=== PATIENT | female | born 1995 | race Caucasian/White ===

== ENCOUNTER 2017-12-27 11:11 | Emergency (ER) | payer OTHER ==
[~2017-12-27 11:11] MED LIST: ABILIFY20 MG PO; ADDERALL20 MG PO; ANAPROX DS550 MG PO; BIRTH CONTROL1 EAC1 PO; CLARITIN10 MG PO; DARVOCET N 1001 TAB PO; DEPO PROVER150 MG/ML IM; FLOVENT 110 M110 MCG INH; IRON325 M1 PO; IRON325 MG PO; MACROBID100 M1 PO; MEDROL DOSEPAK4 MG PO; MOTRIN400 MG PO; MOTRIN600 MG PO; MOTRIN800 MG PO; NAPROSYN500 MG PO; PERCOCET 325 MG1 TA7; PRENATAL1 TA1 PO; PROVENTIL0.09 MG/AC IH; ROBAXIN500 MG PO; ROBITUSSIN AC 10 MG/ PO; SEPTRA DS 800 M1 TAB PO; TESSALON PERLE100 M1 PO; TRIMOX500 MG PO; ULTRAM50 MG PO; VENTOLIN0.09 MG/AC IH; VICODIN 500 MG-1 TAB PO; ZITHROMAX Z PA250 MG PO; ZOFRAN ODT4 MG SL; ZOFRAN4 MG PO; ZYRTEC10 M1 PO
[2017-12-27 11:15] VITALS: BP 125/82
[2017-12-27] MEDS ORDERED: Motrin,Rufen800 MG PO (13:22)
[2017-12-27] MEDS ORDERED: CYCLOBENZAPRINE5 M3 PO (13:22)
== END 2017-12-27 11:28 | disposition home or self-care (01) ==
LOC: ED 11:11
DX: M54.5 Low back pain (principal); F17.200 Nicotine dependence, unspecified, uncomplicated; Z79.899 Other long term (current) drug therapy

== ENCOUNTER 2018-03-07 10:09 | Emergency (ER) | payer OTHER ==
[~2018-03-07] VITALS: Ht 160 cm; Wt 66.7 kg
[~2018-03-07 10:09] MED LIST changes: +CYCLOBENZAPRINE5 M3 PO; +Motrin,Rufen800 MG PO
[2018-03-07 10:12] VITALS: BP 127/74
[2018-03-07] MEDS ORDERED: CIPRODEX 0.3%-7.5 ML OT (10:40)
[2018-03-07] MEDS ORDERED: AMOXICILLIN500 M2 PO (10:40)
[2018-03-07] MEDS ORDERED: CILOXAN 5 ML5 ML OPH (14:55)
== END 2018-03-07 10:55 | disposition home or self-care (01) ==
LOC: ED 10:09
DX: H00.034 Abscess of left upper eyelid (principal); F17.200 Nicotine dependence, unspecified, uncomplicated; F10.10 Alcohol abuse, uncomplicated

== ENCOUNTER 2018-07-27 21:05 | Emergency (ER) | payer OTHER ==
[~2018-07-27] VITALS: Ht 162.5 cm; Wt 59.0 kg
[~2018-07-27 21:05] MED LIST changes: +AMOXICILLIN500 M2 PO; +CILOXAN 5 ML5 ML OPH; +CIPRODEX 0.3%-7.5 ML OT
[2018-07-27 21:09] VITALS: BP 124/73
[2018-07-27 21:25] LABS: BILIRUBIN NEGATIVE (NEGATIVE); BLOOD TRACE-INTACT (NEGATIVE); CLARITY CLEAR (CLEAR); COLOR YELLOW (YELLOW); GLUCOSE NEGATIVE (NEGATIVE); KETONE NEGATIVE (NEGATIVE); LEUKO ESTERASE TRACE (NEGATIVE); NITRITE NEGATIVE (NEGATIVE)
[2018-07-27 21:31] LABS: BACTERIA 1+; EPITHELIAL CELLS 0-2; RBC 0-2 rbc/hpf (0-2)
[2018-07-27 21:38] LABS: BASO # 0.1 10*3/uL (0.0-0.1); BASO % 0.6 % (0.0-1.0); EOS # 0.2 10*3/uL (0.0-0.4); EOS % 1.4 % (1.0-4.0); HEMATOCRIT 37.9 % (37.0-47.0); HEMOGLOBIN 12.8 g/dl (12.0-16.0); LYMPH # 2.3 10*3/uL (1.3-4.4); LYMPH % 17.6 % (27.0-41.0); MEAN CELL VOLUME 85.4 fl (81.0-99.0); MEAN CORPUSCULAR HGB 28.8 pg (27.0-31.0); MEAN CORPUSCULAR HGB CONC 33.8 g/dl (33.0-37.0); MONO # 1.1 10*3/uL (0.1-1.0); MONO % 7.9 % (3.0-9.0); NEUT # 9.6 10*3/uL (2.3-7.9); NEUT % 72.2 % (47.0-73.0); PLATELET COUNT AUTOMATED 234 10*3/uL (130-400); RED BLOOD COUNT 4.44 10*6/uL (4.10-5.10); WHITE BLOOD COUNT 13.2 10*3/uL (4.8-10.8)
[2018-07-27 21:53] LABS: ALBUMIN 3.2 gm/dl (3.1-4.5); ALKALINE PHOSPHATASE 67 U/L (45-117); BUN 5 mg/dl (7-24); CHLORIDE 106 mmol/L (98-107); CREATININE 0.72 mg/dL (0.55-1.02); POTASSIUM 3.2 mmol/L (3.5-5.1); SGOT/AST 18 IU/L (3-35); SGPT/ALT 23 U/L (12-78); SODIUM 141 mmol/L (136-145); TOTAL PROTEIN 6.5 gm/dL (6.4-8.2)
[2018-07-27] MEDS ORDERED: OMNICEF300 MG PO (23:44)
== END 2018-07-27 23:50 | disposition home or self-care (01) ==
LOC: ED 21:05
PROVIDERS: Nurse Practitioner Family
DX: N12 Tubulo-interstitial nephritis, not specified as acute or chronic (principal); Z79.2 Long term (current) use of antibiotics; Z98.51 Tubal ligation status

== ENCOUNTER → 2019-12-05 | Outpatient (CLI) | payer OTHER ==
[~2019-12-05] MED LIST changes: +OMNICEF300 MG PO
== END | disposition home or self-care (01) ==
LOC: US 15:38
DX: R10.2 Pelvic and perineal pain (principal)

== ENCOUNTER 2020-04-16 20:06 | Emergency (ER) | payer OTHER ==
[~2020-04-16] VITALS: Ht 165.1 cm; Wt 59.0 kg
[2020-04-16 20:18] VITALS: BP 118/66
== END 2020-04-16 22:19 | disposition home or self-care (01) ==
LOC: ED 20:06
DX: S66.911A Strain of unspecified muscle, fascia and tendon at wrist and hand level, right hand, initial encounter (principal); F41.9 Anxiety disorder, unspecified; J45.909 Unspecified asthma, uncomplicated; F31.9 Bipolar disorder, unspecified; F17.200 Nicotine dependence, unspecified, uncomplicated; X58.XXXA Exposure to other specified factors, initial encounter; Y93.89 Activity, other specified; Y92.89 Other specified places as the place of occurrence of the external cause; Y99.8 Other external cause status

== ENCOUNTER → 2020-12-07 | Outpatient (CLI) | payer OTHER | END | disposition home or self-care (01) | LOC: US 10:30 | PROVIDERS: ATTEND Nurse Practitioner Women's Health | DX: N63.11 Unspecified lump in the right breast, upper outer quadrant (principal) ==

== ENCOUNTER 2021-04-23 19:55 | Emergency (ER) | payer OTHER ==
[~2021-04-23] VITALS: Ht 160 cm; Wt 62.1 kg
[2021-04-23 20:04] VITALS: BP 130/78
[2021-04-23] MEDS ORDERED: AUGMENTIN 875875 MG PO (20:48)
[2021-04-23] MEDS ORDERED: HYDROCODONE-AC1 EAC1 PO (20:48)
[2021-04-23] MEDS ORDERED: IBUPROFEN600 MG PO (20:48)
== END 2021-04-23 21:43 | disposition home or self-care (01) ==
LOC: ED 19:55
DX: K04.7 Periapical abscess without sinus (principal)

== ENCOUNTER 2022-01-19 20:02 | Emergency (ER) | payer OTHER ==
[~2022-01-19] VITALS: Ht 160 cm; Wt 57.2 kg
[~2022-01-19 20:02] MED LIST changes: +AUGMENTIN 875875 MG PO; +HYDROCODONE-AC1 EAC1 PO; +IBUPROFEN600 MG PO
[2022-01-19 20:07] VITALS: BP 133/66
[2022-01-19] MEDS ORDERED: IBUPROFEN600 MG PO (20:36)
== END 2022-01-19 21:09 | disposition home or self-care (01) ==
LOC: ED 20:02
DX: S46.911A Strain of unspecified muscle, fascia and tendon at shoulder and upper arm level, right arm, initial encounter (principal); F17.200 Nicotine dependence, unspecified, uncomplicated; W18.39XA Other fall on same level, initial encounter; Y93.89 Activity, other specified; Y92.89 Other specified places as the place of occurrence of the external cause; Y99.8 Other external cause status

== ENCOUNTER 2022-04-19 11:52 | Emergency (ER) | payer OTHER ==
[~2022-04-19] VITALS: Wt 53.1 kg
[2022-04-19 12:11] VITALS: BP 128/78
[2022-04-19] MEDS ORDERED: Motrin,Rufen800 MG PO (12:18)
[2022-04-19] MEDS ORDERED: AMOXICILLIN500 M2 PO (12:18)
== END 2022-04-19 12:42 | disposition home or self-care (01) ==
LOC: ED 11:52
DX: K08.89 Other specified disorders of teeth and supporting structures (principal)

== ENCOUNTER 2022-04-22 07:47 | Emergency (ER) | payer OTHER ==
[~2022-04-22] VITALS: Ht 160 cm; Wt 54.0 kg
[2022-04-22 07:57] VITALS: BP 124/62
== END 2022-04-22 09:22 | disposition home or self-care (01) ==
LOC: ED 07:47
DX: U07.1 COVID-19 (principal)

== ENCOUNTER 2022-06-02 16:05 | Emergency (ER) | payer OTHER ==
[~2022-06-02] VITALS: Ht 160 cm; Wt 54.4 kg
[2022-06-02 16:50] VITALS: BP 131/52
[2022-06-02 17:58] LABS: BASO # 0.1 10*3/uL (0.0-0.1); BASO % 0.7 % (0.0-1.0); EOS # 0.2 10*3/uL (0.0-0.4); EOS % 1.7 % (1.0-4.0); HEMATOCRIT 37.7 % (37.0-47.0); LYMPH # 2.4 10*3/uL (1.3-4.4); LYMPH % 26.8 % (27.0-41.0); MEAN CELL VOLUME 87.5 fl (81.0-99.0); MEAN CORPUSCULAR HGB 28.8 pg (27.0-31.0); MEAN CORPUSCULAR HGB CONC 32.9 g/dl (33.0-37.0); MEAN PLATELET VOLUME 9.8 fl (9.6-12.3); MONO # 0.8 10*3/uL (0.1-1.0); MONO % 8.9 % (3.0-9.0); NEUT # 5.4 10*3/uL (2.3-7.9); NEUT % 61.7 % (47.0-73.0); PLATELET COUNT AUTOMATED 278 10*3/uL (130-400); RED BLOOD COUNT 4.31 10*6/uL (4.10-5.10); RED CELL DISTRI WIDTH 13.3 % (0-14.5); WHITE BLOOD COUNT 8.8 10*3/uL (4.8-10.8)
[2022-06-02 18:13] LABS: ALKALINE PHOSPHATASE 51 U/L (45-117); BUN 5 mg/dl (7-24); CHLORIDE 108 mmol/L (98-107); CREATININE 0.69 mg/dL (0.55-1.02); LIPASE 156 U/L (73-393); POTASSIUM 3.7 mmol/L (3.5-5.1); SGOT/AST 9 IU/L (3-35); SGPT/ALT 16 U/L (12-78); SODIUM 141 mmol/L (136-145); TOTAL PROTEIN 6.7 gm/dL (6.4-8.2)
[2022-06-02 18:15] LABS: B-hCG (QUALITATIVE) NEGATIVE (NEGATIVE)
[2022-06-02 18:20] LABS: BILIRUBIN Negative (Negative); BLOOD Negative (Negative); CLARITY Clear (Clear); COLOR Yellow (Yellow); GLUCOSE Negative (Negative); KETONE Negative (Negative); LEUKO ESTERASE 1+ (Negative); NITRITE Negative (Negative); PH 7.5 (4.5-8.0); SPECIFIC GRAVITY <= 1.005 (1.001-1.030); UROBILINOGEN 0.2 E.U./dl (0.0-1.0)
[2022-06-02 18:28] LABS: BACTERIA 2+
[2022-06-02] MEDS ORDERED: PHENERGAN25 M3 PO (18:58)
[2022-06-02] MEDS ORDERED: PRILOSEC20 M1 PO (18:58)
== END 2022-06-02 19:07 | disposition home or self-care (01) ==
LOC: ED 16:05
PROVIDERS: Emergency Medicine
DX: R10.9 Unspecified abdominal pain (principal); R11.0 Nausea; F17.200 Nicotine dependence, unspecified, uncomplicated

== ENCOUNTER 2022-10-27 15:15 | Emergency (ER) | payer OTHER ==
[~2022-10-27] VITALS: Ht 162.5 cm; Wt 56.7 kg
[~2022-10-27 15:15] MED LIST changes: +PHENERGAN25 M3 PO; +PRILOSEC20 M1 PO
[2022-10-27 15:23] VITALS: BP 142/71
== END 2022-10-27 16:58 | disposition home or self-care (01) ==
LOC: ED 15:15
DX: S93.602A Unspecified sprain of left foot, initial encounter (principal); W22.8XXA Striking against or struck by other objects, initial encounter; Y93.89 Activity, other specified; Y92.89 Other specified places as the place of occurrence of the external cause; Y99.8 Other external cause status

== ENCOUNTER 2023-01-26 18:24 | Emergency (ER) | payer OTHER ==
[~2023-01-26] VITALS: Ht 160 cm; Wt 56.7 kg
[2023-01-26 18:47] VITALS: BP 128/67
[2023-01-26] MEDS ORDERED: Motrin,Rufen800 MG PO (19:04)
[2023-01-26] MEDS ORDERED: AMOXICILLIN500 M2 PO (19:04)
== END 2023-01-26 19:14 | disposition home or self-care (01) ==
LOC: ED 18:24
DX: K04.7 Periapical abscess without sinus (principal)

== ENCOUNTER 2023-02-15 02:09 | Emergency (ER) | payer OTHER ==
[~2023-02-15] VITALS: Ht 160 cm; Wt 56.7 kg
[2023-02-15 02:17] VITALS: BP 126/79
[2023-02-15] MEDS ORDERED: METHOCARBAMOL500 M1 PO (02:34)
[2023-02-15] MEDS ORDERED: NAPROXEN250 MG PO (02:34)
== END 2023-02-15 02:58 | disposition home or self-care (01) ==
LOC: ED 02:09
DX: S46.911A Strain of unspecified muscle, fascia and tendon at shoulder and upper arm level, right arm, initial encounter (principal); X50.0XXA Overexertion from strenuous movement or load, initial encounter; Y93.89 Activity, other specified; Y92.89 Other specified places as the place of occurrence of the external cause; Y99.8 Other external cause status

== ENCOUNTER → 2023-04-13 | Outpatient (CLI) | payer OTHER ==
[~2023-04-13] MED LIST changes: +METHOCARBAMOL500 M1 PO; +NAPROXEN250 MG PO
== END | disposition home or self-care (01) ==
LOC: RAD 10:55
PROVIDERS: ATTEND Nurse Practitioner
DX: M25.511 Pain in right shoulder (principal)

== ENCOUNTER 2023-06-03 21:26 | Emergency (ER) | payer OTHER ==
[~2023-06-03] VITALS: Ht 165.1 cm; Wt 56.7 kg
[2023-06-03 21:40] VITALS: BP 124/69
[2023-06-03 22:03] LABS: BASO # 0.1 10*3/uL (0.0-0.1); BASO % 0.6 % (0.0-1.0); EOS # 0.3 10*3/uL (0.0-0.4); EOS % 2.3 % (1.0-4.0); HEMATOCRIT 36.8 % (37.0-47.0); LYMPH # 3.1 10*3/uL (1.3-4.4); LYMPH % 28.6 % (27.0-41.0); MEAN CELL VOLUME 91.1 fl (81.0-99.0); MEAN CORPUSCULAR HGB 29.5 pg (27.0-31.0); MEAN CORPUSCULAR HGB CONC 32.3 g/dl (33.0-37.0); MEAN PLATELET VOLUME 10.4 fl (9.6-12.3); MONO % 9.2 % (3.0-9.0); NEUT # 6.5 10*3/uL (2.3-7.9); NEUT % 59.1 % (47.0-73.0); PLATELET COUNT AUTOMATED 265 10*3/uL (130-400); RED BLOOD COUNT 4.04 10*6/uL (4.10-5.10); RED CELL DISTRI WIDTH 13.1 % (0-14.5); WHITE BLOOD COUNT 10.9 10*3/uL (4.8-10.8)
[2023-06-03] MEDS ORDERED: ZITHROMAX250 MG PO (22:16)
[2023-06-03] MEDS ORDERED: PREDNISONE50 MG PO (22:17)
[2023-06-03 22:32] LABS: ALKALINE PHOSPHATASE 65 U/L (46-116); CHLORIDE 107 mmol/L (98-107); POTASSIUM 3.4 mmol/L (3.4-5.1); TOTAL PROTEIN 6.2 gm/dL (6.0-8.0)
[2023-06-03 22:34] LABS: BUN < 5 mg/dl (9-23); SGPT/ALT < 7 U/L (10-49)
== END 2023-06-03 23:06 | disposition home or self-care (01) ==
LOC: ED 21:26
PROVIDERS: Nurse Practitioner Family
DX: J45.909 Unspecified asthma, uncomplicated (principal); F41.9 Anxiety disorder, unspecified; F31.9 Bipolar disorder, unspecified; F90.9 Attention-deficit hyperactivity disorder, unspecified type; Z98.890 Other specified postprocedural states; Z87.891 Personal history of nicotine dependence

== ENCOUNTER 2023-11-03 00:08 | Emergency (ER) | payer OTHER ==
[~2023-11-03] VITALS: Ht 167.6 cm; Wt 56.7 kg
[~2023-11-03 00:08] MED LIST changes: +PREDNISONE50 MG PO; +ZITHROMAX250 MG PO
[2023-11-03 00:43] VITALS: BP 117/50
[2023-11-03 01:03] LABS: HEMATOCRIT 40.9 % (37.0-47.0); MEAN CELL VOLUME 93.4 fl (81.0-99.0); MEAN CORPUSCULAR HGB CONC 31.1 g/dl (33.0-37.0); MEAN PLATELET VOLUME 10.3 fl (9.6-12.3); PLATELET COUNT AUTOMATED 236 10*3/uL (130-400); RED BLOOD COUNT 4.38 10*6/uL (4.10-5.10); RED CELL DISTRI WIDTH 12.9 % (0-14.5); WHITE BLOOD COUNT 7.3 10*3/uL (4.8-10.8)
[2023-11-03 01:06] LABS: MANUAL DIFF REFLEX YES
[2023-11-03 01:16] LABS: ACT PARTIAL THROMBO TIME 28.9 SECONDS (20.0-32.1)
[2023-11-03 01:24] LABS: ALKALINE PHOSPHATASE 60 U/L (46-116); ATYPICAL LYMPHS 1 % (0-0); BUN 6 mg/dl (9-23); BURR CELLS FEW; CHLORIDE 109 mmol/L (98-107); LIPASE 33 U/L (12-53); PLATELET SUFFICIENCY NORMAL (NORMAL); SGPT/ALT 22 U/L (5-49); TOTAL CELLS COUNTED 100 #CELLS; TOTAL PROTEIN 6.6 gm/dL (6.0-8.0)
[2023-11-03 01:25] LABS: SPHEROCYTES FEW
[2023-11-03] MEDS ORDERED: ZITHROMAX250 MG PO (03:44)
[2023-11-03] MEDS ORDERED: PREDNISONE50 MG PO (03:44)
== END 2023-11-03 04:11 | disposition home or self-care (01) ==
LOC: ED 00:08
PROVIDERS: Internal Medicine
DX: J40 Bronchitis, not specified as acute or chronic (principal); Z20.822 Contact with and (suspected) exposure to COVID-19; F17.210 Nicotine dependence, cigarettes, uncomplicated; Z79.2 Long term (current) use of antibiotics; Z79.899 Other long term (current) drug therapy

== ENCOUNTER 2023-11-22 18:00 | Emergency (ER) | payer OTHER ==
[~2023-11-22] VITALS: Ht 167.6 cm; Wt 56.7 kg
[2023-11-22 18:22] VITALS: BP 105/60
[2023-11-22] MEDS ORDERED: Motrin,Rufen800 MG PO (19:48)
== END 2023-11-22 19:51 | disposition home or self-care (01) ==
LOC: ED 18:00
DX: S90.31XA Contusion of right foot, initial encounter (principal); Z79.2 Long term (current) use of antibiotics; Z79.899 Other long term (current) drug therapy; W22.8XXA Striking against or struck by other objects, initial encounter; Y93.89 Activity, other specified; Y92.89 Other specified places as the place of occurrence of the external cause; Y99.8 Other external cause status

== ENCOUNTER 2023-12-12 12:35 | Emergency (ER) | payer OTHER ==
[~2023-12-12] VITALS: Wt 54.9 kg
[2023-12-12 13:01] VITALS: BP 132/88
[2023-12-12] MEDS ORDERED: Ketorolac Tromethamine 30 MG/ML VIAL IM ONE (13:15)
[2023-12-12 13:36] LABS: BASO # 0.1 10*3/uL (0.0-0.1); BASO % 0.6 % (0.0-1.0); EOS # 0.2 10*3/uL (0.0-0.4); EOS % 1.6 % (1.0-4.0); HEMATOCRIT 41.9 % (37.0-47.0); LYMPH # 2.5 10*3/uL (1.3-4.4); LYMPH % 25.3 % (27.0-41.0); MEAN CELL VOLUME 91.9 fl (81.0-99.0); MEAN CORPUSCULAR HGB 28.5 pg (27.0-31.0); MEAN PLATELET VOLUME 9.8 fl (9.6-12.3); MONO # 0.6 10*3/uL (0.1-1.0); MONO % 6.2 % (3.0-9.0); NEUT # 6.5 10*3/uL (2.3-7.9); PLATELET COUNT AUTOMATED 360 10*3/uL (130-400); RED BLOOD COUNT 4.56 10*6/uL (4.10-5.10); RED CELL DISTRI WIDTH 12.7 % (0-14.5); WHITE BLOOD COUNT 9.8 10*3/uL (4.8-10.8)
[2023-12-12 13:56] LABS: BUN 6 mg/dl (9-23); CHLORIDE 106 mmol/L (98-107); POTASSIUM 4.8 mmol/L (3.4-5.1)
[2023-12-12] MEDS ORDERED: PREDNISONE50 MG PO (15:07)
== END 2023-12-12 15:20 | disposition home or self-care (01) ==
LOC: ED 12:35
PROVIDERS: Physician Assistant Medical
DX: M94.0 Chondrocostal junction syndrome [Tietze] (principal); J45.909 Unspecified asthma, uncomplicated; F90.9 Attention-deficit hyperactivity disorder, unspecified type; F31.9 Bipolar disorder, unspecified; F41.9 Anxiety disorder, unspecified; F17.210 Nicotine dependence, cigarettes, uncomplicated; Z98.890 Other specified postprocedural states

== ENCOUNTER 2024-01-03 09:15 | Emergency (ER) | payer OTHER ==
[~2024-01-03] VITALS: Ht 167.6 cm; Wt 54.4 kg
[2024-01-03] MEDS ORDERED: Cyclobenzaprine Hydrochlorid 10 MG TAB PO ONE (09:30)
[2024-01-03 09:38] VITALS: BP 106/58
[2024-01-03] MEDS ORDERED: CYCLOBENZAPRINE5 M3 PO (10:56)
== END 2024-01-03 11:08 | disposition home or self-care (01) ==
LOC: ED 09:15
DX: M79.671 Pain in right foot (principal); M62.838 Other muscle spasm; F41.9 Anxiety disorder, unspecified; J45.909 Unspecified asthma, uncomplicated; F31.9 Bipolar disorder, unspecified; F90.9 Attention-deficit hyperactivity disorder, unspecified type; Z98.890 Other specified postprocedural states; Z87.891 Personal history of nicotine dependence

== ENCOUNTER → 2024-02-28 | Outpatient (CLI) | payer OTHER ==
[2024-02-28 12:29] LABS: BASO # 0.1 10*3/uL (0.0-0.1); BASO % 0.9 % (0.0-1.0); EOS # 0.2 10*3/uL (0.0-0.4); EOS % 2.3 % (1.0-4.0); HEMATOCRIT 39.8 % (37.0-47.0); LYMPH # 1.8 10*3/uL (1.3-4.4); LYMPH % 28.2 % (27.0-41.0); MEAN CORPUSCULAR HGB 28.5 pg (27.0-31.0); MEAN CORPUSCULAR HGB CONC 31.7 g/dl (33.0-37.0); MONO # 0.6 10*3/uL (0.1-1.0); MONO % 9.7 % (3.0-9.0); NEUT # 3.8 10*3/uL (2.3-7.9); NEUT % 58.6 % (47.0-73.0); PLATELET COUNT AUTOMATED 289 10*3/uL (130-400); RED BLOOD COUNT 4.42 10*6/uL (4.10-5.10); RED CELL DISTRI WIDTH 13.7 % (0-14.5); WHITE BLOOD COUNT 6.5 10*3/uL (4.8-10.8)
[2024-02-28 13:01] LABS: ALKALINE PHOSPHATASE 51 U/L (46-116); BUN 6 mg/dl (9-23); CHLORIDE 107 mmol/L (98-107); POTASSIUM 3.7 mmol/L (3.4-5.1); SGPT/ALT 9 U/L (5-49); TOTAL PROTEIN 6.9 gm/dL (6.0-8.0)
[2024-02-28 13:03] LABS: VITAMIN D, 25-HYDROXY 39.3 ng/mL (30-100)
[2024-02-28 13:21] LABS: FREE T4 1.28 ng/dl (0.89-1.76)
== END | disposition home or self-care (01) ==
LOC: LAB 12:06
PROVIDERS: ATTEND Nurse Practitioner Family
DX: G43.019 Migraine without aura, intractable, without status migrainosus (principal)

== ENCOUNTER 2024-03-03 11:15 | Emergency (ER) | payer OTHER ==
[~2024-03-03] VITALS: Ht 162.5 cm; Wt 62.6 kg
[2024-03-03 11:36] VITALS: BP 143/91
[2024-03-03] MEDS ORDERED: SODIUM CHLORIDE 0.9% 1,000 ML IV ONE (11:45)
[2024-03-03] MEDS ORDERED: Dexamethasone Sodium Phospha 20 MG/5 ML VIAL IV ONE (11:50)
[2024-03-03] MEDS ORDERED: Metoclopramide Hydrochloride 10 MG/2 ML AMP IV ONE (11:50)
[2024-03-03] MEDS ORDERED: Ketorolac Tromethamine 30 MG/ML VIAL IV ONE (11:50)
[2024-03-03] MEDS ORDERED: diphenhydrAMINE hydrochloride 50 MG/ML VIAL IV ONE (11:50)
== END 2024-03-03 14:39 | disposition home or self-care (01) ==
LOC: ED 11:15
DX: G43.909 Migraine, unspecified, not intractable, without status migrainosus (principal); F31.9 Bipolar disorder, unspecified; F41.9 Anxiety disorder, unspecified; J45.909 Unspecified asthma, uncomplicated; F90.9 Attention-deficit hyperactivity disorder, unspecified type; Z98.890 Other specified postprocedural states; F17.200 Nicotine dependence, unspecified, uncomplicated

== ENCOUNTER → 2024-04-07 | Outpatient (CLI) | payer OTHER ==
[2024-04-07 11:10] LABS: FREE T4 1.26 ng/dl (0.89-1.76)
[2024-04-08 04:06] LABS: THYROID PEROXIDASE (TPO) AB 14 IU/mL (0-34)
[2024-04-08 16:08] LABS: THYROGLOBULIN ANTIBODY <1.0 IU/mL (0.0-0.9)
== END | disposition home or self-care (01) ==
LOC: LAB 09:46
PROVIDERS: ATTEND Nurse Practitioner Family
DX: R94.6 Abnormal results of thyroid function studies (principal)

== ENCOUNTER 2024-07-28 02:32 | Emergency (ER) | payer OTHER ==
[~2024-07-28] VITALS: Ht 165.1 cm; Wt 73.5 kg
[2024-07-28 02:41] VITALS: BP 123/73
[2024-07-28 02:52] LABS: BILIRUBIN Negative (Negative); BLOOD Negative (Negative); CLARITY Clear (Clear); COLOR Yellow (Yellow); GLUCOSE Negative (Negative); KETONE Negative (Negative); LEUKO ESTERASE Trace (Negative); NITRITE Negative (Negative); PH 6.5 (4.5-8.0); UROBILINOGEN 0.2 E.U./dl (0.0-1.0)
[2024-07-28 02:59] LABS: BACTERIA 1+; MUCOUS 1+; RBC 0-2 rbc/hpf (0-2)
[2024-07-28 03:10] LABS: BASO # 0.1 10*3/uL (0.0-0.1); BASO % 0.6 % (0.0-1.0); EOS # 0.3 10*3/uL (0.0-0.4); EOS % 2.6 % (1.0-4.0); HEMATOCRIT 41.3 % (37.0-47.0); LYMPH # 4.1 10*3/uL (1.3-4.4); LYMPH % 41.3 % (27.0-41.0); MEAN CORPUSCULAR HGB 28.9 pg (27.0-31.0); MEAN CORPUSCULAR HGB CONC 31.7 g/dl (33.0-37.0); MEAN PLATELET VOLUME 10.1 fl (9.6-12.3); MONO # 0.9 10*3/uL (0.1-1.0); MONO % 9.1 % (3.0-9.0); NEUT # 4.6 10*3/uL (2.3-7.9); NEUT % 46.2 % (47.0-73.0); PLATELET COUNT AUTOMATED 305 10*3/uL (130-400); RED BLOOD COUNT 4.54 10*6/uL (4.10-5.10); RED CELL DISTRI WIDTH 13.2 % (0-14.5); WHITE BLOOD COUNT 9.9 10*3/uL (4.8-10.8)
[2024-07-28] MEDS ORDERED: Ondansetron Hydrochloride 4 MG TAB SL ONE (03:15)
[2024-07-28] MEDS ORDERED: Acetaminophen/Oxycodone 5 MG/325 MG TABLET PO ONE (03:15)
[2024-07-28 03:40] LABS: BUN 6 mg/dl (9-23); CHLORIDE 105 mmol/L (98-107); POTASSIUM 3.4 mmol/L (3.4-5.1)
[2024-07-28] MEDS ORDERED: CIPRO500 MG PO (04:48)
== END 2024-07-28 05:10 | disposition home or self-care (01) ==
LOC: ED 02:32
PROVIDERS: Emergency Medicine
DX: N30.90 Cystitis, unspecified without hematuria (principal); G43.909 Migraine, unspecified, not intractable, without status migrainosus; F41.9 Anxiety disorder, unspecified; F31.9 Bipolar disorder, unspecified; J45.909 Unspecified asthma, uncomplicated; F90.9 Attention-deficit hyperactivity disorder, unspecified type; Z90.49 Acquired absence of other specified parts of digestive tract; Z98.890 Other specified postprocedural states

== ENCOUNTER 2024-08-25 09:56 | Emergency (ER) | payer OTHER ==
[~2024-08-25] VITALS: Ht 162.5 cm; Wt 63.5 kg
[~2024-08-25 09:56] MED LIST changes: +CIPRO500 MG PO
[2024-08-25 10:18] VITALS: BP 126/80
[2024-08-25] MEDS ORDERED: AVPAK AZITHROM250 MG PO (12:22)
[2024-08-25] MEDS ORDERED: Ondansetron4 MG PO (12:22)
[2024-08-25] MEDS ORDERED: AMOX-CLAV 875-1 EACH PO (12:24)
== END 2024-08-25 12:28 | disposition home or self-care (01) ==
LOC: ED 09:56
DX: J45.909 Unspecified asthma, uncomplicated (principal); Z20.822 Contact with and (suspected) exposure to COVID-19; F41.9 Anxiety disorder, unspecified; F31.9 Bipolar disorder, unspecified; R11.2 Nausea with vomiting, unspecified; R19.7 Diarrhea, unspecified; F90.9 Attention-deficit hyperactivity disorder, unspecified type; Z98.890 Other specified postprocedural states; Z87.891 Personal history of nicotine dependence

== ENCOUNTER 2024-09-09 11:06 | Emergency (ER) | payer OTHER ==
[~2024-09-09] VITALS: Ht 162.5 cm; Wt 63.5 kg
[~2024-09-09 11:06] MED LIST changes: +AMOX-CLAV 875-1 EACH PO; +AVPAK AZITHROM250 MG PO; +Ondansetron4 MG PO
[2024-09-09 11:16] VITALS: BP 125/76
[2024-09-09] MEDS ORDERED: IBUPROFEN 800 MG TAB PO ONE (11:45)
[2024-09-09] MEDS ORDERED: ALBUTEROL 8 GM INHALER INH ONE (11:45)
[2024-09-09 11:59] LABS: BASO # 0.1 10*3/uL (0.0-0.1); EOS # 0.2 10*3/uL (0.0-0.4); EOS % 2.5 % (1.0-4.0); HEMATOCRIT 39.3 % (37.0-47.0); MEAN CELL VOLUME 89.5 fl (81.0-99.0); MEAN CORPUSCULAR HGB 28.7 pg (27.0-31.0); MEAN CORPUSCULAR HGB CONC 32.1 g/dl (33.0-37.0); MEAN PLATELET VOLUME 9.7 fl (9.6-12.3); MONO # 0.7 10*3/uL (0.1-1.0); MONO % 9.9 % (3.0-9.0); NEUT % 56.2 % (47.0-73.0); PLATELET COUNT AUTOMATED 325 10*3/uL (130-400); RED BLOOD COUNT 4.39 10*6/uL (4.10-5.10); RED CELL DISTRI WIDTH 12.2 % (0-14.5); WHITE BLOOD COUNT 7.1 10*3/uL (4.8-10.8)
[2024-09-09 12:19] LABS: ALKALINE PHOSPHATASE 58 U/L (46-116); BUN 7 mg/dl (9-23); CHLORIDE 107 mmol/L (98-107); POTASSIUM 3.9 mmol/L (3.4-5.1); SGPT/ALT 12 U/L (5-49); TOTAL PROTEIN 6.6 gm/dL (6.0-8.0)
[2024-09-09] MEDS ORDERED: methylPREDNISolone sod succ 125 MG VIAL IV ONE (13:50)
[2024-09-09] MEDS ORDERED: PREDNISONE20 M1 PO (13:55)
[2024-09-09] MEDS ORDERED: GUAIFEN-CODEIN118 ML PO (13:55)
[2024-09-09] MEDS ORDERED: ZITHROMAX250 MG PO (13:55)
== END 2024-09-09 14:09 | disposition home or self-care (01) ==
LOC: ED 11:06
PROVIDERS: Nurse Practitioner
DX: J20.9 Acute bronchitis, unspecified (principal); Z20.822 Contact with and (suspected) exposure to COVID-19; F41.9 Anxiety disorder, unspecified; J45.909 Unspecified asthma, uncomplicated; F31.9 Bipolar disorder, unspecified; F90.9 Attention-deficit hyperactivity disorder, unspecified type; Z98.890 Other specified postprocedural states; F17.290 Nicotine dependence, other tobacco product, uncomplicated

== ENCOUNTER 2024-11-02 19:31 | Emergency (ER) | payer OTHER ==
[~2024-11-02] VITALS: Ht 165.1 cm; Wt 59.9 kg
[~2024-11-02 19:31] MED LIST changes: +GUAIFEN-CODEIN118 ML PO; +PREDNISONE20 M1 PO
[2024-11-02 19:43] VITALS: BP 151/99
[2024-11-02] MEDS ORDERED: Ondansetron Hydrochloride 4 MG/2 ML VIAL IV ONE (19:55)
[2024-11-02] MEDS ORDERED: Ketorolac Tromethamine 30 MG/ML VIAL IV ONE (19:55)
[2024-11-02] MEDS ORDERED: SODIUM CHLORIDE 0.9% 1,000 ML IV ONE (19:55)
[2024-11-02] MEDS ORDERED: METHOCARBAMOL 500 MG TAB PO ONE (19:55)
== END 2024-11-02 21:28 | disposition home or self-care (01) ==
LOC: ED 19:31
DX: S16.1XXA Strain of muscle, fascia and tendon at neck level, initial encounter (principal); M25.512 Pain in left shoulder; F41.9 Anxiety disorder, unspecified; F31.9 Bipolar disorder, unspecified; F90.9 Attention-deficit hyperactivity disorder, unspecified type; G43.909 Migraine, unspecified, not intractable, without status migrainosus; Z98.890 Other specified postprocedural states; X50.1XXA Overexertion from prolonged static or awkward postures, initial encounter; Y93.89 Activity, other specified; Y92.009 Unspecified place in unspecified non-institutional (private) residence as the place of occurrence of the external cause; Y99.8 Other external cause status

== ENCOUNTER → 2025-04-14 | Emergency (ER) | payer OTHER ==
[~2025-04-14] VITALS: Ht 165.1 cm; Wt 65.8 kg
[~2025-04-14] MED LIST changes: +methylPREDNISolone sod succ 125 MG VIAL IM ONE
[2025-04-14 05:14] VITALS: BP 121/89
== END ==
LOC: ED 05:04
DX: J40 Bronchitis, not specified as acute or chronic (principal); F31.9 Bipolar disorder, unspecified; F41.9 Anxiety disorder, unspecified; Z79.899 Other long term (current) drug therapy

== ENCOUNTER 2025-06-23 19:48 | Emergency (ER) | payer OTHER ==
[~2025-06-23] VITALS: Wt 61.2 kg
[~2025-06-23 19:48] MED LIST changes: -methylPREDNISolone sod succ 125 MG VIAL IM ONE
[2025-06-23 20:03] VITALS: BP 124/74
== END 2025-06-23 21:57 | disposition home or self-care (01) ==
LOC: ED 19:48
DX: M79.671 Pain in right foot (principal); M79.674 Pain in right toe(s); L53.9 Erythematous condition, unspecified

== ENCOUNTER → 2025-08-11 | Outpatient (CLI) | payer OTHER ==
[2025-08-11 17:39] LABS: BASO # 0.1 10*3/uL (0.0-0.1); BASO % 0.6 % (0.0-1.0); EOS # 0.2 10*3/uL (0.0-0.4); EOS % 1.3 % (1.0-4.0); MEAN CELL VOLUME 88.6 fl (81.0-99.0); MEAN CORPUSCULAR HGB 28.3 pg (27.0-31.0); MEAN PLATELET VOLUME 10.8 fl (9.6-12.3); MONO # 0.9 10*3/uL (0.1-1.0); MONO % 7.4 % (3.0-9.0); NEUT # 8.3 10*3/uL (2.3-7.9); NEUT % 70.9 % (47.0-73.0); NUCLEATED RED BLOOD CELL 0.0 % (0.0-0.0); NUCLEATED RED BLOOD CELL 0.0 10*3/uL (0.0-0.0); PLATELET COUNT AUTOMATED 350 10*3/uL (130-400); RED CELL DISTRI WIDTH 12.7 % (0-14.5)
[2025-08-11 18:01] LABS: BUN 7 mg/dl (9-23); SGPT/ALT 9 U/L (5-49)
[2025-08-11 18:08] LABS: VITAMIN D, 25-HYDROXY 40.6 ng/mL (30-100)
== END | disposition home or self-care (01) ==
LOC: ZRHCWE 14:54
PROVIDERS: ATTEND Nurse Practitioner Family
DX: R53.83 Other fatigue (principal)

== ENCOUNTER 2025-08-21 21:43 | Emergency (ER) | payer OTHER ==
[~2025-08-21] VITALS: Ht 198.1 cm; Wt 74.4 kg
[2025-08-21 22:46] LABS: BILIRUBIN Negative (Negative); BLOOD Negative (Negative); CLARITY Clear (Clear); COLOR Yellow (Yellow); KETONE Trace (Negative); LEUKO ESTERASE 1+ (Negative); NITRITE Negative (Negative); PH 6.0 (4.5-8.0); SPECIFIC GRAVITY 1.020 (1.001-1.030); UROBILINOGEN 1.0 E.U./dl (0.0-1.0)
[2025-08-21 23:14] LABS: EPITHELIAL CELLS 21-30
[2025-08-21 23:15] LABS: RBC 0-2 rbc/hpf (0-2)
[2025-08-21] MEDS ORDERED: MELOXICAM15 MG PO (23:59)
[2025-08-22] MEDS ORDERED: ACETAMINOPHEN 325 MG TAB PO ONE (00:15)
[2025-08-22 00:20] VITALS: BP 132/84
== END 2025-08-22 00:52 | disposition home or self-care (01) ==
LOC: ED 21:43
PROVIDERS: Emergency Medicine
DX: R10.32 Left lower quadrant pain (principal); R19.7 Diarrhea, unspecified; R11.0 Nausea; R39.11 Hesitancy of micturition; F41.9 Anxiety disorder, unspecified; J45.909 Unspecified asthma, uncomplicated; F31.9 Bipolar disorder, unspecified; F90.9 Attention-deficit hyperactivity disorder, unspecified type